=== PATIENT | female | born 1965 | race Asian ===

== ENCOUNTER 2018-09-13 16:18 | Emergency (ER) | payer SELFPAY ==
[~2018-09-13] VITALS: Ht 154.9 cm; Wt 49.0 kg
[2018-09-13 16:27] VITALS: BP 141/89
== END 2018-09-13 19:50 | disposition home or self-care (01) ==
LOC: ER 16:22
DX: N64.4 Mastodynia (principal)
CPT/HCPCS: 71045; 76604